=== PATIENT | male | born 1940 | race Caucasian/White ===

== ENCOUNTER 2018-09-17 07:39 | Day surgery (SDC) | payer MEDICARE, OTHER ==
[~2018-09-17] VITALS: Ht 177.8 cm; Wt 87.0 kg
[~2018-09-17 07:39] MED LIST: CHONDROITIN/GLUCOSAM; VITAMIN B 12
[2018-09-17] MEDS ORDERED: MAGN84 (08:25)
[2018-09-17 08:32] LABS: BASOPHILS ABSOLUTE AUTO 0.01 K/mm3 (0.00-0.23); BASOPHILS PERCENT AUTO 0 % (0-2); EOSINOPHILS ABSOLUTE AUTO 0.02 K/mm3 (0.00-0.68); EOSINOPHILS PERCENT AUTO 1 % (0-6); Hemoglobin 13.5 g/dL (13.5-17.5); IMMATURE GRAN ABSOLUTE AUTO 0.06 K/mm3 (0.00-0.10); IMMATURE GRAN PERCENT AUTO 2 % (0-1); LYMPHOCYTES ABSOLUTE AUTO 0.66 K/mm3 (0.84-5.20); LYMPHOCYTES PERCENT AUTO 21 % (21-46); MONOCYTES ABSOLUTE AUTO 0.98 K/mm3 (0.16-1.47); MONOCYTES PERCENT AUTO 30 % (4-13); Mean Corpuscular HGB 31.8 pg (26.0-34.0); Mean Corpuscular HGB Conc 32.9 g/dL (31.5-36.5); Mean Corpuscular Volume 97 fL (80-100); NEUTROPHILS ABSOLUTE AUTO 1.49 K/mm3 (1.96-9.15); NEUTROPHILS PERCENT AUTO 46 % (41-73); RDW Coefficient Variation 19.4 % (11.7-14.2); RDW Standard Deviation 67.8 fL (35.1-46.3); Red Blood Cell Count 4.25 M/mm3 (4.30-5.90); White Blood Cell Count 3.22 K/mm3 (4.00-11.30)
[2018-09-17 08:35] LABS: Platelet Count 50 K/mm3 (150-400)
== END 2018-09-17 11:55 | disposition home or self-care (01) ==
LOC: ORSCSDS 07:39 → ORD 09:30 → ORSCSDS 11:55
PROVIDERS: Surgery
PROC: 05H533Z Insertion of Infusion Device into Right Subclavian Vein, Percutaneous Approach (ICD-10-PCS; principal; 2018-09-17 09:30)
PROC: B5161ZA Fluoroscopy of Right Subclavian Vein using Low Osmolar Contrast, Guidance (ICD-10-PCS; principal; 2018-09-17 09:30)
DX: C93.12 Chronic myelomonocytic leukemia, in relapse (principal)
CPT/HCPCS: 77001; 85025; C1788; J0690; J1100; J1642; J2370; J2405; J2704; J7120

== ENCOUNTER → 2018-11-26 | Outpatient (CLI) | payer MEDICARE, OTHER ==
[~2018-11-26] MED LIST changes: +MAGN84
[2018-11-26 10:21] LABS: BASOPHILS ABSOLUTE AUTO 0.06 K/mm3 (0.00-0.23); BASOPHILS PERCENT AUTO 1 % (0-2); EOSINOPHILS ABSOLUTE AUTO 0.01 K/mm3 (0.00-0.68); EOSINOPHILS PERCENT AUTO 0 % (0-6); IMMATURE GRAN ABSOLUTE AUTO 0.23 K/mm3 (0.00-0.10); IMMATURE GRAN PERCENT AUTO 4 % (0-1); LYMPHOCYTES ABSOLUTE AUTO 0.98 K/mm3 (0.84-5.20); LYMPHOCYTES PERCENT AUTO 18 % (21-46); MONOCYTES ABSOLUTE AUTO 1.39 K/mm3 (0.16-1.47); MONOCYTES PERCENT AUTO 26 % (4-13); Mean Corpuscular HGB 32.3 pg (26.0-34.0); Mean Corpuscular HGB Conc 32.6 g/dL (31.5-36.5); Mean Corpuscular Volume 99 fL (80-100); NEUTROPHILS ABSOLUTE AUTO 2.74 K/mm3 (1.96-9.15); NEUTROPHILS PERCENT AUTO 51 % (41-73); RDW Coefficient Variation 16.6 % (11.7-14.2); RDW Standard Deviation 61.1 fL (35.1-46.3); Red Blood Cell Count 4.34 M/mm3 (4.30-5.90); White Blood Cell Count 5.41 K/mm3 (4.00-11.30)
[2018-11-26 10:26] LABS: Platelet Count 94 K/mm3 (150-400)
[2018-11-26 10:33] LABS: Alanine Aminotransfer (ALT/SGP 25 U/L (12-78); Albumin, Blood 4.1 g/dL (3.4-5.0); Albumin/Globulin Ratio 0.9 (0.8-1.8); Alk Phos 76 U/L (50-136); Anion Gap 8 mmol/L (6-16); Aspartate Aminotrans (AST/SGOT 28 U/L (12-37); Blood Urea Nitrogen 22 mg/dL (8-24); Bun/Creatinine Ratio 19.8 (12.0-20.0); CO2, Blood 25 mmol/L (21-32); Calcium, Blood 9.3 mg/dL (8.5-10.1); Chloride, Blood 105 mmol/L (98-108); Creatinine, Blood 1.11 mg/dL (0.60-1.20); Globulin, Blood 4.4 g/dL (2.2-4.0); Glomerular Filtration Rate >60 (60-); Glucose, Blood 102 mg/dL (70-99); Potassium, Blood 4.2 mmol/L (3.5-5.5); Sodium, Blood 138 mmol/L (136-145); Total Protein, Blood 8.5 g/dL (6.4-8.2)
== END | disposition home or self-care (01) ==
LOC: LAB 09:46 → LAB SHORT 09:46
PROVIDERS: Internal Medicine Hematology & Oncology
DX: C93.10 Chronic myelomonocytic leukemia not having achieved remission (principal)
CPT/HCPCS: 80053; 85025

== ENCOUNTER → 2019-01-21 | Outpatient (CLI) | payer MEDICARE, OTHER ==
[2019-01-21 13:07] LABS: Percent Saturation 27.6 % (20.0-50.0)
== END | disposition home or self-care (01) ==
LOC: LAB 11:23 → LAB SHORT 11:23
PROVIDERS: Registered Nurse Oncology
DX: C93.10 Chronic myelomonocytic leukemia not having achieved remission (principal)
CPT/HCPCS: 82728; 83540; 83550

== ENCOUNTER → 2020-06-08 | Outpatient (CLI) | payer MEDICARE, OTHER ==
[2020-06-08 10:22] LABS: Hematocrit 29.5 % (37.0-53.0); Hemoglobin 9.4 g/dL (13.5-17.5); Mean Corpuscular HGB 30.2 pg (26.0-34.0); Mean Corpuscular HGB Conc 31.9 g/dL (31.5-36.5); Mean Corpuscular Volume 95 fL (80-100); NRBC ABSOLUTE 0.04 K/mm3 (0.00-0.02); NRBC Auto 0.6 /100 WBC (0.0-0.2); RDW Coefficient Variation 21.9 % (11.7-14.2); RDW Standard Deviation 75.7 fL (35.1-46.3); Red Blood Cell Count 3.11 M/mm3 (4.30-5.90); White Blood Cell Count 7.26 K/mm3 (4.00-11.30)
[2020-06-08 10:30] LABS: Albumin, Blood 3.5 g/dL (3.4-5.0); Albumin/Globulin Ratio 0.7 (0.8-1.8); Bilirubin, Total 0.6 mg/dL (0.1-1.0); Bun/Creatinine Ratio 15.9 (12.0-20.0); Calcium, Blood 9.1 mg/dL (8.5-10.1); Creatinine, Blood 1.26 mg/dL (0.60-1.20); Globulin, Blood 5.1 g/dL (2.2-4.0); Potassium, Blood 4.3 mmol/L (3.5-5.5); Total Protein, Blood 8.6 g/dL (6.4-8.2)
[2020-06-08 11:10] LABS: BASOPHILS ABSOLUTE MAN 0.36 K/mm3 (0.00-0.23); BASOPHILS PERCENT MAN 5 % (0-2); BLASTS PERCENT MAN 1 % (0-0); EOSINOPHILS PERCENT MAN 0 % (0-6); LYMPHOCYTES ABSOLUTE MAN 1.45 K/mm3 (0.84-5.20); LYMPHOCYTES PERCENT MAN 20 % (21-46); MONOCYTES ABSOLUTE MAN 1.59 K/mm3 (0.16-1.47); MONOCYTES PERCENT MAN 22 % (4-13); MYELOCYTE ABSOLUTE MAN 0.07 K/mm3 (0.00-0.00); MYELOCYTE PERCENT MAN 1 % (0-0); SEG NEUTROPHILS PERCENT MAN 51 % (41-73); TOTAL CELLS COUNTED 100
[2020-06-08 11:13] LABS: Platelet Count 84 K/mm3 (150-400)
== END | disposition home or self-care (01) ==
LOC: LAB SHORT 09:27 → LAB 09:27
PROVIDERS: Internal Medicine Hematology & Oncology
DX: C93.10 Chronic myelomonocytic leukemia not having achieved remission (principal)
CPT/HCPCS: 80053; 85025

== ENCOUNTER 2021-01-25 11:49 | Inpatient (IN) | payer MEDICARE, OTHER ==
[~2021-01-25] VITALS: Ht 177.8 cm; Wt 69.2 kg
[2021-01-25 12:32] LABS: Hematocrit 25.9 % (37.0-53.0); Hemoglobin 7.9 g/dL (13.5-17.5); Mean Corpuscular HGB 26.1 pg (26.0-34.0); Mean Corpuscular HGB Conc 30.5 g/dL (31.5-36.5); Mean Corpuscular Volume 86 fL (80-100); Platelet Count 204 K/mm3 (150-400); RDW Coefficient Variation 26.5 % (11.7-14.2); RDW Standard Deviation 78.6 fL (35.1-46.3); Red Blood Cell Count 3.03 M/mm3 (4.30-5.90)
[2021-01-25 12:41] LABS: White Blood Cell Count 20.41 K/mm3 (4.00-11.30)
[2021-01-25 12:42] LABS: NRBC ABSOLUTE 0.34 K/mm3 (0.00-0.02); NRBC Auto 1.7 /100 WBC (0.0-0.2)
[2021-01-25 12:50] LABS: Alanine Aminotransfer (ALT/SGP 27 U/L (12-78); Albumin, Blood 2.8 g/dL (3.4-5.0); Albumin/Globulin Ratio 0.5 (0.8-1.8); Alk Phos 151 U/L (50-136); Anion Gap 13 mmol/L (6-16); Aspartate Aminotrans (AST/SGOT 50 U/L (12-37); Bilirubin, Total 1.7 mg/dL (0.1-1.0); Blood Urea Nitrogen 28 mg/dL (8-24); Bun/Creatinine Ratio 17.8 (12.0-20.0); CO2, Blood 23 mmol/L (21-32); Calcium, Blood 8.8 mg/dL (8.5-10.1); Chloride, Blood 93 mmol/L (98-108); Creatinine, Blood 1.57 mg/dL (0.60-1.20); Globulin, Blood 5.7 g/dL (2.2-4.0); Glomerular Filtration Rate 43 (60-); Glucose, Blood 124 mg/dL (70-99); Potassium, Blood 2.7 mmol/L (3.5-5.5); Sodium, Blood 129 mmol/L (136-145); Total Protein, Blood 8.5 g/dL (6.4-8.2); Troponin I <0.015 ng/mL (0.000-0.040)
[2021-01-25 12:54] LABS: BAND PERCENT MAN 2 % (0-8); BASOPHILS PERCENT MAN 1 % (0-2); EOSINOPHILS PERCENT MAN 0 % (0-6); LYMPHOCYTES ABSOLUTE MAN 1.22 K/mm3 (0.84-5.20); LYMPHOCYTES PERCENT MAN 6 % (21-46); METAMYELOCYTE PERCENT MAN 2 % (0-0); MONOCYTES PERCENT MAN 26 % (4-13); MYELOCYTE ABSOLUTE MAN 0.81 K/mm3 (0.00-0.00); MYELOCYTE PERCENT MAN 4 % (0-0); NEUTROPHILS ABSOLUTE MAN 12.24 K/mm3 (1.96-9.15); PLASMA CELLS PERCENT MAN 1 % (0-0); SEG NEUTROPHILS PERCENT MAN 58 % (41-73); TOTAL CELLS COUNTED 100
[2021-01-25 16:00] LABS: Influenza A, PCR NEGATIVE (NEGATIVE); Influenza B, PCR NEGATIVE (NEGATIVE); Resp Syncytial Virus, PCR NEGATIVE (NEGATIVE); SARS-Cov-2 (COVID-19) PCR, MMC NEGATIVE (NEGATIVE)
[2021-01-25 19:02] LABS: Percent Saturation 23.1 % (20.0-50.0)
[2021-01-25 19:59] LABS: Source, Urine Clean Catch
[2021-01-25 20:05] LABS: Appearance, Urine Clear (Clear); Bilirubin, Urine Neg (Neg); Blood, Urine 3+ (Neg); Color, Urine Amber (P-Yellow); Glucose Qualitative, Urine Neg (Neg); Ketones, Urine Neg (Neg); Leukocyte Esterase, Urine Neg (Neg); Nitrite, Urine Neg (Neg); Protein, Urine 2+ (Neg); Urobilinogen, Urine NORM (Normal)
[2021-01-25 20:34] LABS: Bacteria Rare /hpf; Red Blood Cells, Urine 0-2 /hpf (0-2); Squamous Epithelial Cells Rare /hpf (Few); White Blood Cells, Urine Not Seen /hpf (0-5)
--- NOTE | 2021-01-25 21:45 | NUR ---
PT ADMITTED TO RM# 14 FROM ER VIA STRETCHER. ALERT AND ORIENTED, ABLE TO VERBALIZE NEEDS AND AMSWER QUESTIONS REGARDING HEALTH HISTORY. TELEL SHOWS SR/ST LOW 100'S, VSS, ORIENTED TO ROOM AND CALL PRATER SYSTEM. ARRIVED MILDLY TACHYPNIC IN THE HIGH 20'S, O2 SATS 88-94% ON 4L. RT AT BEDSIDE TO APLY BIPAP. PT DOES C/O OF INCREASED WORK OF BREATHING PAST COUPLE DAYS. DENIES ANY HOME MEDS, OR HEALTH HISTORY OTHER THAN CURRENTLY RECEIVING CHEMO FOR LEUKEMIA AND WHAT HE THINKS WAS A FEM-POP BYPASS IN MARCH. BED LOCKED AND LOW, CALL PRATER IN REACH. 02 SATS ON BIPAP >95% JODEE DEVRIES
[2021-01-26 00:44] LABS: Hematocrit 25.8 % (37.0-53.0); Hemoglobin 7.9 g/dL (13.5-17.5); Mean Corpuscular HGB 26.1 pg (26.0-34.0); Mean Corpuscular HGB Conc 30.6 g/dL (31.5-36.5); Mean Corpuscular Volume 85 fL (80-100); RDW Coefficient Variation 26.3 % (11.7-14.2); RDW Standard Deviation 78.2 fL (35.1-46.3); Red Blood Cell Count 3.03 M/mm3 (4.30-5.90)
[2021-01-26 00:50] LABS: NRBC Auto 3.6 /100 WBC (0.0-0.2); Platelet Count 189 K/mm3 (150-400); White Blood Cell Count 22.52 K/mm3 (4.00-11.30)
[2021-01-26 01:59] LABS: Alanine Aminotransfer (ALT/SGP 34 U/L (12-78); Albumin, Blood 2.7 g/dL (3.4-5.0); Albumin/Globulin Ratio 0.6 (0.8-1.8); Alk Phos 156 U/L (50-136); Anion Gap 14 mmol/L (6-16); Aspartate Aminotrans (AST/SGOT 69 U/L (12-37); Bilirubin, Total 1.5 mg/dL (0.1-1.0); Blood Urea Nitrogen 33 mg/dL (8-24); Bun/Creatinine Ratio 19.2 (12.0-20.0); CO2, Blood 21 mmol/L (21-32); Calcium, Blood 8.5 mg/dL (8.5-10.1); Chloride, Blood 96 mmol/L (98-108); Creatinine, Blood 1.72 mg/dL (0.60-1.20); Globulin, Blood 4.8 g/dL (2.2-4.0); Glomerular Filtration Rate 38 (60-); Glucose, Blood 105 mg/dL (70-99); Potassium, Blood 3.7 mmol/L (3.5-5.5); Sodium, Blood 131 mmol/L (136-145); Total Protein, Blood 7.5 g/dL (6.4-8.2); Troponin I <0.015 ng/mL (0.000-0.040)
[2021-01-26 02:26] LABS: BAND PERCENT MAN 3 % (0-8); BASOPHILS PERCENT MAN 0 % (0-2); EOSINOPHILS PERCENT MAN 0 % (0-6); LYMPHOCYTES ABSOLUTE MAN 2.02 K/mm3 (0.84-5.20); LYMPHOCYTES PERCENT MAN 9 % (21-46); METAMYELOCYTE ABSOLUTE MAN 0.22 K/mm3 (0.00-0.00); METAMYELOCYTE PERCENT MAN 1 % (0-0); MONOCYTES ABSOLUTE MAN 3.82 K/mm3 (0.16-1.47); MONOCYTES PERCENT MAN 17 % (4-13); MYELOCYTE ABSOLUTE MAN 0.45 K/mm3 (0.00-0.00); MYELOCYTE PERCENT MAN 2 % (0-0); NEUTROPHILS ABSOLUTE MAN 15.98 K/mm3 (1.96-9.15); SEG NEUTROPHILS PERCENT MAN 68 % (41-73); TOTAL CELLS COUNTED 100
--- NOTE | 2021-01-26 06:00 | NUR ---
SHIFT SUMMARY: PT HAS GOOD SHIFT AND TOLERATING BIPAP WELL WITH DECREASED WORK OF BREATHING. VOIDING IN URINAL, TELE SHOWS SR/ST LOW 100'S. ABLE TO VERBALIZE NEEDS, DENIES PAIN, VSS. BED LOCKED AND LOW, CALL PRATER IN REACH. JODEE DEVRIES
--- NOTE | 2021-01-26 18:22 | NUR ---
pt came to [facility] last night w/ chf. sepsis, pneumonia. Assumed care at o7oo. Pt was resting comfortably and ate most of his breakfast. At one point pt c/o difficulty breathing stating that he had to use alot of effort to get his breath in and out, and his bp dropped to 90'2/60's. RT swithched him from a cpap to a bipap and his bp stats stabilized. The hospitalist started diuresis. Pt stated he felt much better after using the bipap and was able to get some sleep. Pt is using a urinal in the bed and is able to urinate by himself. He is alaert and oriented x 4 and can appropriately request help if needed.
[2021-01-27 03:59] LABS: Hematocrit 22.2 % (37.0-53.0); Hemoglobin 6.9 g/dL (13.5-17.5); Mean Corpuscular HGB 26.4 pg (26.0-34.0); Mean Corpuscular HGB Conc 31.1 g/dL (31.5-36.5); Mean Corpuscular Volume 85 fL (80-100); Platelet Count 181 K/mm3 (150-400); RDW Coefficient Variation 26.5 % (11.7-14.2); RDW Standard Deviation 79.4 fL (35.1-46.3); Red Blood Cell Count 2.61 M/mm3 (4.30-5.90)
[2021-01-27 04:05] LABS: NRBC Auto 2.8 /100 WBC (0.0-0.2)
[2021-01-27 04:28] LABS: Albumin, Blood 2.9 g/dL (3.4-5.0); Albumin/Globulin Ratio 0.6 (0.8-1.8); Bilirubin, Direct 1.1 mg/dL (0.0-0.3); Bilirubin, Indirect 1.1 mg/dL (0.1-0.7); Bilirubin, Total 2.2 mg/dL (0.1-1.0); Calcium, Blood 8.7 mg/dL (8.5-10.1); Creatinine, Blood 1.96 mg/dL (0.60-1.20); Globulin, Blood 4.7 g/dL (2.2-4.0); Potassium, Blood 3.9 mmol/L (3.5-5.5); Total Protein, Blood 7.6 g/dL (6.4-8.2)
--- NOTE | 2021-01-27 05:22 | NUR ---
WET ROLLER SUMMARY PT IS AXO X4 THIS SHIFT. PT'S BP WNL AND STABLE THIS SHIFT. O2 SATS >90% ON 1L NC AND PT REFUSING TO WEAR THE BIPAP FOR MOST OF THE SHIFT. PT REPORTING SEVERE ANXIETY AND WAS NOT ABLE TO CALM DOWN AFTER ATTEMPTING TO LAY FLAT AND BECOMING SOB. THIS RN EXPLAINED TO THE PT WHY THIS WAS HAPPENING WHEN HE LAID FLAT BUT PT WAS VERY ANXIOUS SO A ONE TIME ORDER FOR PO ATIVAN OBTAINED WHICH BROUGHT THE PT MUCH RELIEF. PT AFEBRILE THIS SHIFT. HR SR/ST 90-100'S THIS SHIFT. AM HGB CAME BACK AT <7.0 SO ORDER FOR ONE UNIT PRBC'S OBTAINED. CH LACTIC AT 4.3 SO PROVIDER TIP NOTIFIED W NO FURTHER INSTRUCTIONS. WILL REPORT TO ONCOMING RN.
--- NOTE | 2021-01-27 16:07 | NUR ---
BLOOD TRANSFUSION: BEGAN TRANSFUSING 1 UNIT OF RBC AT 1110. NO REACTIONS IN FIRST 15 MIN. PERFORMED Q1HR VS CHECKS AFTER FIRST 15 MINS. TRANSFUSION COMPLETED AT 1400. PATIENT WAS ON BIPAP AND SLEPT THROUGH PROCEDURE. TOLERATED WELL WITH NO ADVERSE AFFECTS. NOTIFIED.
--- NOTE | 2021-01-27 16:25 | NUR ---
SHIFT SUMMARY: PATIENT DEVELOPED INCREASED WORK OF BREATHING FOLLOWING ADMINISTRATION OF MORNING MEDS. VS WERE STABLE AND O2 SAT WERE >95, BUT PATIENT WAS RESTLESS AND KEPT SAYING, "THIS IS REALLY BAD... IT'S NEVER GONE ON THIS LONG." CONSULTED WITH DR. BLISS WHO ORDERED ANOTHER DOSE OF LASIX AND RT APPLIED BIPAP. PATIENT'S BLOOD ADMINISTRATION BEGAN TRANSFUSING AFTER PATIENT WAS SETTLED. PATIENT SLEPT FROM 1130 UNTIL ALMOST 1500. PATIENT STATED HE FELT MUCH BETTER UPON WAKING AND HIS WORK OF BREATHING WAS DECREASED. HE MISSED LUNCH BUT STATED HE JUST WANTED "SOMETHING BUBBLY." PATIENT HAS ONLY URINATED ONCE THIS SHIFT AT THIS TIME - OUTPUT WAS 150 ML. HE IS CURRENTLY IN BED WITH CALL LIGHT WITHIN REACH AND 1L O2 RUNNING VIA NC. HIS O2 IS >94 AND VS STABLE. WILL REPORT TO ONCOMING RN.
[2021-01-28 05:17] LABS: Magnesium, Blood 2.6 mg/dL (1.6-2.4)
[2021-01-28 05:18] LABS: Albumin, Blood 2.8 g/dL (3.4-5.0); Albumin/Globulin Ratio 0.6 (0.8-1.8); Bilirubin, Total 2.6 mg/dL (0.1-1.0); Bun/Creatinine Ratio 27.5 (12.0-20.0); Calcium, Blood 8.2 mg/dL (8.5-10.1); Creatinine, Blood 2.55 mg/dL (0.60-1.20); Globulin, Blood 4.5 g/dL (2.2-4.0); Potassium, Blood 4.1 mmol/L (3.5-5.5); Total Protein, Blood 7.3 g/dL (6.4-8.2)
[2021-01-28 05:46] LABS: Hematocrit 25.3 % (37.0-53.0); Mean Corpuscular HGB 26.8 pg (26.0-34.0); Mean Corpuscular HGB Conc 31.6 g/dL (31.5-36.5); Mean Corpuscular Volume 85 fL (80-100); RDW Coefficient Variation 25.1 % (11.7-14.2); RDW Standard Deviation 74.1 fL (35.1-46.3); Red Blood Cell Count 2.99 M/mm3 (4.30-5.90)
--- NOTE | 2021-01-28 05:47 | NUR ---
AIRPLANE REFUELER SUMMARY PT IS AXO X4 BUT DID APPEAR SLIGHTLY DISORIENTED FOLLOWING ORAL MORPHINE ADMINISTRATION. PT ON BIPAP MASK FOR MOST OF THE NIGHT. PT HAVING MINIMAL URINE OUTPUT THIS SHIFT W <200ML URINE ON BLADDER SCAN. BP WNL AND STABLE THIS SHIFT. TELE SHOWING SR IN THE 80'S THIS SHIFT. WILL REPORT TO ONCOMING RN.
[2021-01-28 05:56] LABS: White Blood Cell Count 20.87 K/mm3 (4.00-11.30)
[2021-01-28 05:57] LABS: NRBC ABSOLUTE 0.38 K/mm3 (0.00-0.02); NRBC Auto 1.8 /100 WBC (0.0-0.2)
[2021-01-28 06:20] LABS: Platelet Count 150 K/mm3 (150-400)
--- NOTE | 2021-01-28 18:21 | NUR ---
SHIFT SUMMARY PT HAS BEEN AWAKE & ALERT MOST OF THE DAY. HE HAD A FEW VISITORS ALSO. VSS, ON 1 L O2 VIA NC WHILE AWAKE, CPAP WHILE SLEEPING. PT IS TOLERATING CPAP WITH NO PROBLEMS. INCENTIVE SPIROMETER WAS INITIATED. EDUCATION PROVIDED BUT PT WAS TOO SLEEPY & NOT VERY RECEPTIVE. OBSERVATION WILL BE REPORTED TO NOC RN. PT HAS HAD NO APPETITE, FAMILY BROUGHT IN FOOD, PT ASKED TO GIVE IT AWAY. VERBAL NUTRITION EDU WAS GIVEN. ABX INFUSED PER EMAR. PT IS RESTING QUIETLY AT THIS TIME, BED IN LOW POSITION, CALL LIGHT IN REACH.
--- NOTE | 2021-01-28 21:20 | NUR ---
PT IS ALERT AND ORIENTED X3. PT'S MAIN COMPLAINT IS LACK OF SLEEP. PT DENIES ANY COMPLAINTS OF CHEST PAIN, NAUSEA, HEADACHE, OR NUMBNESS AND TINGLING. PT IS A PLEASANT OLDER GENTLEMAN, COOPERATIVE WITH CARE. FOOD/FLUIDS AT BEDSIDE - PT REPORTS A POOR APPETITE. TKO IV FLUIDS INFUSING. CALL LIGHT WITHIN REACH. BED IN LOW POSITION.
--- NOTE | 2021-01-29 01:04 | NUR ---
PT HAD A 34 BEAT RUN OF VTACH - STRIP IN CHART. PT AWAKENED FROM SLEEP, PT DENIED ANY CHEST PAIN OR DISCOMFORT - WILL CONTINUE TO MONITOR.
--- NOTE | 2021-01-29 01:10 | NUR ---
PT SLEEPING - RESPIRATIONS EVEN AND UNLABORED - SATS WNL.
--- NOTE | 2021-01-29 01:30 | NUR ---
REVIEWED WITH LUKE MORALES - 34 BEAT RUN VTACH - HE REPORTS HE REVIEWED PT'S STRIP AND BELIEVES THE RHYTHM TO BE AFIB WITH ABERRANCY - HE APPARENTLY WAS ALSO NOTIFIED BY [facility]U DRUG ABUSE SOCIAL WORKER AT TIME OF RHYTHM CHANGE ABOVE.
[2021-01-29 03:56] LABS: Hematocrit 27.6 % (37.0-53.0); Hemoglobin 8.6 g/dL (13.5-17.5); Mean Corpuscular HGB 26.5 pg (26.0-34.0); Mean Corpuscular HGB Conc 31.2 g/dL (31.5-36.5); Mean Corpuscular Volume 85 fL (80-100); NRBC ABSOLUTE 0.31 K/mm3 (0.00-0.02); NRBC Auto 1.6 /100 WBC (0.0-0.2); Platelet Count 153 K/mm3 (150-400); RDW Coefficient Variation 25.6 % (11.7-14.2); RDW Standard Deviation 73.6 fL (35.1-46.3); Red Blood Cell Count 3.25 M/mm3 (4.30-5.90); White Blood Cell Count 19.03 K/mm3 (4.00-11.30)
--- NOTE | 2021-01-29 04:25 | NUR ---
PT IS NOT ON BLOOD THINNER/ANTICOAG - PLACED PAS ON TO BLE - EDUCATED PT ON REASON FOR USE. CALL LIGHT WITHIN REACH.
[2021-01-29 05:01] LABS: Albumin, Blood 2.7 g/dL (3.4-5.0); Albumin/Globulin Ratio 0.6 (0.8-1.8); Bilirubin, Total 2.1 mg/dL (0.1-1.0); Bun/Creatinine Ratio 30.3 (12.0-20.0); Calcium, Blood 8.1 mg/dL (8.5-10.1); Creatinine, Blood 2.38 mg/dL (0.60-1.20); Globulin, Blood 4.5 g/dL (2.2-4.0); Total Protein, Blood 7.2 g/dL (6.4-8.2)
--- NOTE | 2021-01-29 06:40 | NUR ---
SHIFT SUMMARY - PT WAS ABLE TO SLEEP FOR SEVERAL HOURS LAST NOC, WHICH HE REPORTS WAS A MAIN CONCERN FOR HIM DUE TO LACK OF SLEEP RECENTLY. PT'S SKIN COLOR IS PALE. PT DENIED ANY COMPLAINTS OF CHEST PAIN, NAUSEA, HEADACHE, OR NUMBNESS/TINGLING. PT DID REPORT EPISODES OF SOB, BIOX MONITOR ON - OCCASIONAL SATS DROPPING TO MID 80'S WITH RECOVERY BACK TO LOW TO MID 90'S WITH DEEP BREATHS. PT ON 1L O2 VIA NC. PT IS CURRENTLY SLEEPING, RESPIRATIONS EVEN AND UNLABORED. NO ACUTE CHANGES THROUGHOUT THIS SHIFT. CALL LIGHT WITHIN REACH. ICE CHIPS AT BEDSIDE. BED IN LOW POSITION.
[2021-01-29] MEDS ORDERED: ALBU8HFA2 INH (12:36)
[2021-01-29] MEDS ORDERED: AZIT500 PO (12:37)
[2021-01-29] MEDS ORDERED: METO25 PO (12:38)
[2021-01-29] MEDS ORDERED: MIDO5 PO (12:38)
[2021-01-29] MEDS ORDERED: AMOCLA500 PO (12:39)
[2021-01-29] MEDS ORDERED: PROBIOTIC1 EA13 PO (12:40)
--- NOTE | 2021-01-29 14:20 | NUR ---
IVs OUT AND PRESSURE DRESSED. PER HOME O2 EVALUATION PT IS NOT IN NEED OF HOME O2. PT IS WEAK, HE STS THAT HE IS AWARE THAT HE IS MORE WEAK AT THIS TIME. SHANTAL SCHMITZ CONTACTED PT'S SON "CAROL" WHO STATES THAT HE FEELS CONFIDENT THAT HE CAN ASSIST PT AT HOME, WILL BE HOME WITH THE PT, AND CAN HELP HIM INTO THE HOUSE WHEN HE GETS HOME. PT STS THAT HE HAS 2 FWW AT HOME FOR ASSISTANCE. SHANTAL SCHMITZ ORDERED PT A WHEELCHAIR THAT WILL BE DELIVERED TO PT'S HOME. PT EXPRESSED THAT HE WISHES TO GO HOME. HOME HEALTH IS ARRANGED. PT EXPRESSED UNDERSTANDING OF DC MEDICATION INSTRUCTIONS. HE DENIES FURTHER NEEDS. PT IS ALSO PROVIDED WITH GAIT BELT TO HELP HIM WHEN HE GETS HOME
== END 2021-01-29 15:13 | disposition home or self-care (01) | DRG 871 ==
LOC: ER 11:49 → ERHOLD 18:28 → PCU 18:28
PROVIDERS: Internal Medicine; Physician Assistant; Student in an Organized Health Care Education/Training Program; ADMIT Family Medicine
PROC: 3E02340 Introduction of Influenza Vaccine into Muscle, Percutaneous Approach (ICD-10-PCS; 2021-01-25)
PROC: 5A09357 Assistance with Respiratory Ventilation, Less than 24 Consecutive Hours, Continuous Positive Airway Pressure (ICD-10-PCS; principal; 2021-01-27)
PROC: 30233N1 Transfusion of Nonautologous Red Blood Cells into Peripheral Vein, Percutaneous Approach (ICD-10-PCS; 2021-01-27)
DX: A41.9 Sepsis, unspecified organism (principal); J18.9 Pneumonia, unspecified organism; J96.01 Acute respiratory failure with hypoxia; I50.21 Acute systolic (congestive) heart failure; E87.1 Hypo-osmolality and hyponatremia; C92.10 Chronic myeloid leukemia, BCR/ABL-positive, not having achieved remission; N17.9 Acute kidney failure, unspecified; E87.2 Acidosis; Z20.822 Contact with and (suspected) exposure to COVID-19; I48.0 Paroxysmal atrial fibrillation; R74.01 Elevation of levels of liver transaminase levels; Z23 Encounter for immunization; I95.2 Hypotension due to drugs; T44.7X5A Adverse effect of beta-adrenoreceptor antagonists, initial encounter; R65.20 Severe sepsis without septic shock; E87.6 Hypokalemia; D63.0 Anemia in neoplastic disease; N18.30 Chronic kidney disease, stage 3 unspecified; E78.5 Hyperlipidemia, unspecified; M10.9 Gout, unspecified; Z98.890 Other specified postprocedural states; Z92.21 Personal history of antineoplastic chemotherapy; Z87.891 Personal history of nicotine dependence
CPT/HCPCS: 0241U; 36415; 71046; 71250; 74150; 80053; 81001; 82248; 82607; 82728; 82746; 83540; 83550; 83605; 83735; 83880; 84100; 84145; 84443; 84484; 85025; 85027; 86850; 86900; 86901; 86923; 87040; 90686; 93005; 93010; 94660; 94761; 94762; 96365; 96366; 96368; 96375; 99285-25; A9270; G0008; J0456; J0696; J1940; J2543; J3475; J3480; J7050; P9016; P9046

== ENCOUNTER 2021-02-04 18:48 | Inpatient (IN) | payer MEDICARE, OTHER ==
[~2021-02-04] VITALS: Ht 177.8 cm; Wt 67.6 kg
[~2021-02-04 18:48] MED LIST changes: +ALBU8HFA2 INH; +AMOCLA875 PO; +AZIT500 PO; +METO25 PO; +MIDO5 PO; +PROBIOTIC1 EA13 PO
[2021-02-04 20:06] LABS: Alanine Aminotransfer (ALT/SGP 145 U/L (12-78); Albumin, Blood 2.9 g/dL (3.4-5.0); Albumin/Globulin Ratio 0.6 (0.8-1.8); Alk Phos 198 U/L (50-136); Anion Gap 15 mmol/L (6-16); Aspartate Aminotrans (AST/SGOT 68 U/L (12-37); Bilirubin, Total 1.4 mg/dL (0.1-1.0); Blood Urea Nitrogen 54 mg/dL (8-24); Bun/Creatinine Ratio 17.6 (12.0-20.0); CO2, Blood 20 mmol/L (21-32); Chloride, Blood 103 mmol/L (98-108); Creatinine, Blood 3.06 mg/dL (0.60-1.20); Globulin, Blood 5.2 g/dL (2.2-4.0); Glomerular Filtration Rate 20 (60-); Glucose, Blood 106 mg/dL (70-99); Potassium, Blood 3.3 mmol/L (3.5-5.5); Sodium, Blood 138 mmol/L (136-145); Total Protein, Blood 8.1 g/dL (6.4-8.2); Troponin I <0.015 ng/mL (0.000-0.040)
[2021-02-04 20:07] LABS: Hematocrit 31.1 % (37.0-53.0); Hemoglobin 9.6 g/dL (13.5-17.5); Mean Corpuscular HGB 27.1 pg (26.0-34.0); Mean Corpuscular HGB Conc 30.9 g/dL (31.5-36.5); Mean Corpuscular Volume 88 fL (80-100); NRBC ABSOLUTE 0.19 K/mm3 (0.00-0.02); RDW Coefficient Variation 27.4 % (11.7-14.2); RDW Standard Deviation 79.6 fL (35.1-46.3); Red Blood Cell Count 3.54 M/mm3 (4.30-5.90); White Blood Cell Count 28.17 K/mm3 (4.00-11.30)
[2021-02-04 20:15] LABS: NRBC Auto 0.7 /100 WBC (0.0-0.2)
[2021-02-04 20:26] LABS: BAND PERCENT MAN 2 % (0-8); BASOPHILS PERCENT MAN 0 % (0-2); EOSINOPHILS PERCENT MAN 0 % (0-6); LYMPHOCYTES ABSOLUTE MAN 0.28 K/mm3 (0.84-5.20); LYMPHOCYTES PERCENT MAN 1 % (21-46); MONOCYTES ABSOLUTE MAN 5.91 K/mm3 (0.16-1.47); MONOCYTES PERCENT MAN 21 % (4-13); NEUTROPHILS ABSOLUTE MAN 21.97 K/mm3 (1.96-9.15); SEG NEUTROPHILS PERCENT MAN 76 % (41-73); TOTAL CELLS COUNTED 100
[2021-02-04 20:37] LABS: BASOPHILS ABSOLUTE AUTO 0.12 K/mm3 (0.00-0.23); BASOPHILS PERCENT AUTO 0 % (0-2); EOSINOPHILS ABSOLUTE AUTO 0.02 K/mm3 (0.00-0.68); EOSINOPHILS PERCENT AUTO 0 % (0-6); IMMATURE GRAN ABSOLUTE AUTO 2.59 K/mm3 (0.00-0.10); IMMATURE GRAN PERCENT AUTO 9 % (0-1); LYMPHOCYTES ABSOLUTE AUTO 0.78 K/mm3 (0.84-5.20); LYMPHOCYTES PERCENT AUTO 3 % (21-46); MONOCYTES ABSOLUTE AUTO 7.58 K/mm3 (0.16-1.47); MONOCYTES PERCENT AUTO 27 % (4-13); NEUTROPHILS ABSOLUTE AUTO 17.08 K/mm3 (1.96-9.15); NEUTROPHILS PERCENT AUTO 61 % (41-73)
[2021-02-04 20:39] LABS: Platelet Count 107 K/mm3 (150-400)
[2021-02-04 21:12] LABS: Magnesium, Blood 2.6 mg/dL (1.6-2.4)
[2021-02-05 00:38] LABS: Influenza A, PCR NEGATIVE (NEGATIVE); Influenza B, PCR NEGATIVE (NEGATIVE); Resp Syncytial Virus, PCR NEGATIVE (NEGATIVE); SARS-Cov-2 (COVID-19) PCR, MMC NEGATIVE (NEGATIVE)
--- NOTE | 2021-02-05 05:35 | NUR ---
CARLY WAS ADMITTED FOR ARF. HE IS ON 2L NC, A COUPLE OF WEEKS AGO HE WAS TREATED FOR PNEUMONIA HERE AT [facility]. HE IS FEELING WEAK, HAD A LOOSE CARMEN DURING THE SHIFT, COMPPLAINED IN THE MORNING THAT HE DIDN'T SLEEP THE WHOLE NIGHT AND WOULD LIKE TO HAVE SOME SLEEPING MEDICATION ADDED TO HIS MAR. HE IS WEAK, HE IS ON A CARDIAC DIET. THOUGH CONTINENT HE IS WEARING A BRIEF SINCE HE ACCIDENTALLY WENT ON THE BED LAST NIGHT. HE IS COOPERATIVE.
[2021-02-05 05:44] LABS: Bun/Creatinine Ratio 18.3 (12.0-20.0); Calcium, Blood 8.8 mg/dL (8.5-10.1); Creatinine, Blood 3.34 mg/dL (0.60-1.20); Potassium, Blood 3.2 mmol/L (3.5-5.5)
[2021-02-05] MEDS ORDERED: FLONASE ALLERG9.9 M2 (09:37)
[2021-02-05] MEDS ORDERED: IPRATROPIUM BRO30 ML (09:38)
[2021-02-05] MEDS ORDERED: ALBU90OI INH (09:42)
--- NOTE | 2021-02-05 11:25 | NUR ---
ADVISED PT HAS HAD 11 BEAT RUN VTACH. 1000. BEEN RUNNING NSR AT97 WITH [facility] AND [facility]. CALLED DR WHELAN. WILL REVIEW.
--- NOTE | 2021-02-05 17:18 | NUR ---
PT PLEASANT BUT QUIET TODAY. HAS REFUSED BKFST AND LUNCH. MOSTLY SLEEPING. REFERALS CALLED TO DR WATSON AND DR HANNA AND DR MERCADO. CONTINUES TO BE APPROP. A/O. NO C/O PAIN. DR WATSON STATES IS ADJUSTING MEDS. NO OTHER NEW CONCERNS NOTED. BED IN LOW POSITION, CALL LITE IN REACH, CALLS APPROP
--- NOTE | 2021-02-06 04:17 | NUR ---
MID-NIGHT CARLY EXPERIENCE A 9 BEATS RUN OF VTACH. CHARGE NURSE WAS NOTIFIED. HE ACCIDENTALLY HAD A LOOSE STOOL HE WAS URINATING (THIS SEEMS TO BE A PERSISTENT OCCURENCE). HE ALSO VOMITTED BUT STATED THAT HE DIN'T THINK HE NEEDED ZOFRAN HE SLEPT COMFORTABLY THE REST OF THE NIGHT.
[2021-02-06 05:45] LABS: BASOPHILS ABSOLUTE AUTO 0.09 K/mm3 (0.00-0.23); BASOPHILS PERCENT AUTO 0 % (0-2); EOSINOPHILS ABSOLUTE AUTO 0.01 K/mm3 (0.00-0.68); EOSINOPHILS PERCENT AUTO 0 % (0-6); Hematocrit 27.4 % (37.0-53.0); Hemoglobin 8.3 g/dL (13.5-17.5); IMMATURE GRAN ABSOLUTE AUTO 1.71 K/mm3 (0.00-0.10); IMMATURE GRAN PERCENT AUTO 7 % (0-1); LYMPHOCYTES ABSOLUTE AUTO 0.64 K/mm3 (0.84-5.20); LYMPHOCYTES PERCENT AUTO 3 % (21-46); MONOCYTES ABSOLUTE AUTO 5.83 K/mm3 (0.16-1.47); MONOCYTES PERCENT AUTO 25 % (4-13); Mean Corpuscular HGB 26.9 pg (26.0-34.0); Mean Corpuscular HGB Conc 30.3 g/dL (31.5-36.5); Mean Corpuscular Volume 89 fL (80-100); NEUTROPHILS ABSOLUTE AUTO 15.02 K/mm3 (1.96-9.15); NEUTROPHILS PERCENT AUTO 65 % (41-73); NRBC ABSOLUTE 0.16 K/mm3 (0.00-0.02); NRBC Auto 0.7 /100 WBC (0.0-0.2); RDW Coefficient Variation 27.3 % (11.7-14.2); RDW Standard Deviation 82.2 fL (35.1-46.3); Red Blood Cell Count 3.09 M/mm3 (4.30-5.90)
[2021-02-06 06:10] LABS: Platelet Count 93 K/mm3 (150-400)
[2021-02-06 06:18] LABS: Albumin, Blood 2.6 g/dL (3.4-5.0); Albumin/Globulin Ratio 0.6 (0.8-1.8); Bilirubin, Total 1.4 mg/dL (0.1-1.0); Bun/Creatinine Ratio 18.8 (12.0-20.0); Calcium, Blood 8.3 mg/dL (8.5-10.1); Creatinine, Blood 3.73 mg/dL (0.60-1.20); Globulin, Blood 4.6 g/dL (2.2-4.0); Magnesium, Blood 2.7 mg/dL (1.6-2.4); Potassium, Blood 3.3 mmol/L (3.5-5.5); Total Protein, Blood 7.2 g/dL (6.4-8.2)
--- NOTE | 2021-02-06 14:18 | NUR ---
PT C/O UPSET TUMMY. TRIED ZOFRAN, MINOR HELP. STILL VERY UNCOMFORTABLE. CALLED DR. WHELAN. WILL PLACE ORDERS AND ALSO XRAY ABD.
--- NOTE | 2021-02-06 17:34 | NUR ---
PT PLEASANT COOP TODAY. STATES THAT HAS SMALL AMT OF DIARRHEA WITH VIODS. MENTIONED TO DRMat ALSO C/O UPSET STOMACHE TODAY. DISCUSSED WITH DR. ORDERS FOR TUMS AND GAS-X AND XRAY OF ABD. PEND RESULTS. STATES TUMS AND GAS-X DID HELP SOME. ALLOWS HIM TO REST AGAIN. RECHECK OF ABD SOUNDS PRESENTS WITH SOMEWHAT HYPOACTIVE B/T. NO OTHER CONCERNS NOTED. BED IN LOW POSITION, CALL LITE IN REACH, CALLS APPROP
--- NOTE | 2021-02-07 05:02 | NUR ---
PT WAS INITIALLY AAOX4, C/O NAUSEA AND GI UPSET. PT MEDICATED WITH PRN ZOFRAN IV AT 0114 AND PRN TUMS PO AT 0206. AT 030 I WENT AND CHECKED IN THE PT AND HE WAS RESTING WITH HIS EYES CLOSED, NO DISTRESS NOTED. AT June, DIAGNOSTIC TECHNICIAN REPORTED THAT THE PT'S HEART RHYTHM CHANGED TO V-TACH. UPON CHECKING THE PT, HE WAS FOUND UNRESPONSIVE, BREATHLESS AND NO PULSE WAS PALPABLE. A CODE BLUE WAS CALLED. CPR STARTED AT 327, THE CODE TEAM ARRIVED. THE NURSING MARBLE CARVER, SALVATORE JOSEPH, CONTACTED THE ONLY PERSON ON THE PT'S CHART, A FRIEND, TO NOTIFY OF PT'S CONDITION. RT ZACHARY INTUBATED PT AT 331. PT'S CARDIAC RHYTHM AT 338 WAS PEA PER ON SCENE, CPR CONTINUED. AT 353, DR. Noe MORALES PRONOUCED THE TIME OF . POST MORTEM CARE WAS PROVIDED. NURSING MARBLE CARVER UPDATED THE PT'S PRIMARY CONTACT. CURRENTLY AWAITING THE ARRIVAL OF [facility] TO TRANSPORT PT REMAINS.
== END 2021-02-07 03:52 | DRG 871 ==
LOC: ER 18:48 → MEDS 02-05 01:20
PROVIDERS: Emergency Medicine; Family Medicine; Student in an Organized Health Care Education/Training Program; ADMIT Internal Medicine
PROC: 5A12012 Performance of Cardiac Output, Single, Manual (ICD-10-PCS; principal; 2021-02-07)
DX: A41.9 Sepsis, unspecified organism (principal); J18.9 Pneumonia, unspecified organism; J96.01 Acute respiratory failure with hypoxia; I50.23 Acute on chronic systolic (congestive) heart failure; J44.0 Chronic obstructive pulmonary disease with (acute) lower respiratory infection; N17.9 Acute kidney failure, unspecified; I42.9 Cardiomyopathy, unspecified; C92.10 Chronic myeloid leukemia, BCR/ABL-positive, not having achieved remission; I47.2 Ventricular tachycardia; R64 Cachexia; Z20.822 Contact with and (suspected) exposure to COVID-19; N18.30 Chronic kidney disease, stage 3 unspecified; R65.20 Severe sepsis without septic shock; E87.6 Hypokalemia; Z28.21 Immunization not carried out because of patient refusal; R79.89 Other specified abnormal findings of blood chemistry; Z68.21 Body mass index [BMI] 21.0-21.9, adult; D69.6 Thrombocytopenia, unspecified; I48.0 Paroxysmal atrial fibrillation; M10.9 Gout, unspecified; E78.5 Hyperlipidemia, unspecified; D63.1 Anemia in chronic kidney disease; D63.8 Anemia in other chronic diseases classified elsewhere; Z79.899 Other long term (current) drug therapy; Z92.21 Personal history of antineoplastic chemotherapy; Z87.891 Personal history of nicotine dependence; Z98.890 Other specified postprocedural states
CPT/HCPCS: 0241U; 31500; 31720; 36415; 71045; 74018; 76770; 80048; 80053; 83605; 83735; 83880; 84100; 84132; 84484; 85025; 87040; 92950; 93005; 93010; 94640; 94760; 96365; 96366; 96367; 96368; 96375; 97110; 97161; 97530; 99285-25; A9270; J0282; J0692; J0696; J0881; J1265; J1644; J2405; J2543; J3370; J3475; J3480; J7030; J7040